=== PATIENT | female | born 1970 | race Caucasian/White ===

== ENCOUNTER → 2019-07-07 | Outpatient (CLI) | payer SELFPAY ==
--- NOTE | 2019-07-07 12:47 | Diagnostic Imaging Report ---
INDICATION: Back pain. COMPARISON: None available. TECHNIQUE: Three radiographs of the lumbar spine dated 07/07/2019. FINDINGS: Five lumbar type vertebral bodies are present. Alignment of the lumbar spine is well maintained. Vertebral body heights are well-maintained. Minimal disc space height loss at T12/L1. Otherwise, disc space heights are well-maintained. Minimal osteophyte formation at T12/L1. No acute fracture or dislocation. No destructive osseous process. The bilateral sacroiliac joints are intact. No suspicious radiopaque foreign body. IMPRESSION: No acute osseous abnormality with minimal degenerative changes. Dictated by: Dictated on workstation # [id number]
== END ==
LOC: RAD FS 12:14
PROVIDERS: ATTEND Obstetrics & Gynecology
DX: M54.42 Lumbago with sciatica, left side (principal)
CPT/HCPCS: 72100